=== PATIENT | female | born 1975 | race African-American/Black ===

== ENCOUNTER 2023-04-05 09:43 | Emergency (ER) | payer MEDICAID, SELFPAY ==
[2023-04-05 10:18] VITALS: BP 134/84; PULSE 77; RESP 16; TEMP 36.5; O2SAT 97; BMI 36.0
--- NOTE | 2023-04-05 11:04 | ED.BURNSMOKE ---
HPI - Burn/Smoke Inhalation General Chief complaint: Burn/Smoke Inhalation Stated complaint: Burn on back from yesterday Time Seen by Provider: 04/05/23 10:54 History of Present Illness HPI Narrative: This 47-year-old female is from [place] and does not speak much Monegasque. Her son is present with her and is translating. She comes in with blisters on her upper back as she was using very hot water to fix her hair yesterday. She has some 2nd degree marcano in her upper back due to this injury. She is otherwise in good health. Related Data Home Medications Medication Instructions Recorded Confirmed amlodipine 10 mg tablet 10 mg PO DAILY 02/23/23 04/05/23 metoprolol succinate 100 mg 100 mg PO DAILY 02/23/23 04/05/23 tablet,extended release 24 hr Previous Rx's Medication Instructions Recorded ketorolac 10 mg tablet 10 mg PO Q8H 5 days #15 tabs 04/05/23 Allergies Allergy/AdvReac Type Severity Reaction Status Date / Time No Known Drug Allergies Allergy Verified 04/05/23 10:18 Review of Systems Status of ROS: Reports: 10 or more systems reviewed and unremarkable except as noted in History and below Narrative: The patient states through certified court/medical interpreter that she is otherwise in good health. [facility] Medical History (Updated 04/05/23 @ 11:11 by Rolan Coleman MD) Sleep apnea ?G47.30 - Sleep apnea, unspecified (ICD-10) Hypertension ?I10 - Essential (primary) hypertension (ICD-10) Polio ?A80.9 - Acute poliomyelitis, unspecified (ICD-10) Non-insulin dependent diabetes mellitus Surgical History (Updated 02/23/23 @ 15:25 by Karina Fung ~ [facility], [facility]) H/O right cataract extraction ?Z98.41 - Cataract extraction status, right eye (ICD-10) Social History (Updated 02/23/23 @ 15:25 by Karina Fung ~ [facility], [facility]) Narrative: from [place], multiple motor deficits since age 3 daughter-Albinor Smoking Status: Never smoker Do you use any of these nicotine containing products: None Second hand tobacco smoke exposure: No How often do you have a drink containing alcohol: never AUDIT-C Alcohol total score: 0 Non-prescribed substance use: denies use service: No Exam Narrative: Exam Narrative: Constitutional: Well-developed, well-nourished, no acute distress. HEENT: Normocephalic, atraumatic. Neck: Normal range of motion. Nontender. Supple. Heart: Regular. No murmurs. Normal rate. Intact distal pulses. Lungs: Clear to auscultation. No chest discomfort. No wheezes, rhonchi, or rales. Abdomen: Normal bowel sounds. Nontender. No rebound tenderness. Genitalia: Deferred. Back: No midline tenderness. Normal range of motion. Extremities: Normal range of motion. No injury. Skin: Area of injury to the upper back just below the neck involving less than 1% of total body surface area. These are 2nd degree marcano with 1 blister that has ruptured. Neurologic: No altered sensation. No weakness. Alert and oriented. Psychiatric: No suicidality. No anxiety or depression. No insomnia. Nursing notes and vitals signs are reviewed. Const: Vital Signs, click to edit/add: Vital Signs - 24 hr 04/05/23 10:18 Temperature 97.7 F Pulse Rate [Pulse Oximeter] 77 Respiratory Rate 16 [facility] 134/84 Pulse Oximetry 97 Oxygen Delivery Me thod Room Air Course Vital Signs Vital signs: Initial Vital Signs Temperature 97.7 F 04/05/23 10:18 Temperature Source Temporal Artery Scan 04/05/23 10:18 Pulse Rate 77 04/05/23 10:18 Pulse Rhythm Regular 04/05/23 10:18 Pulse Strength 3+ Normal 04/05/23 10:18 Respiratory Rate 16 04/05/23 10:18 Blood Pressure 134/84 04/05/23 10:18 Blood Pressure Mean 100 04/05/23 10:18 Blood Pressure Position Sitting 04/05/23 10:18 Pulse Oximetry 97 04/05/23 10:18 Oxygen Delivery Method Room Air 04/05/23 10:18 Vital Signs Temperature 97.7 F 04/05/23 10:18 Pulse Rate 77 04/05/23 10:18 Respiratory Rate 16 04/05/23 10:18 Blood Pressure 134/84 04/05/23 10:18 Pulse Oximetry 97 04/05/23 10:18 Oxygen Delivery Method Room Air 04/05/23 10:18 Temperature 97.7 F 04/05/23 10:18 Pulse Rate 77 04/05/23 10:18 Respiratory Rate 16 04/05/23 10:18 Blood Pressure 134/84 04/05/23 10:18 Pulse Oximetry 97 04/05/23 10:18 Oxygen Delivery Method Room Air 04/05/23 10:18 MDM - Burn/Smoke Inhalation MDM Narrative Medical decision making narrative: This patient comes in with hot liquid 2nd degree marcano to her upper back just below her neck. This occurred when fixing her hair using hot water. She has 3 or 4 blisters and 1 of them has drained. There is no sign of infection or other complication. The patient received antibiotic ointment over the wound followed by and nonstick dressing. A prescription for Toradol as provided. Instructions regarding wound care were given. Discharge Plan Discharge Clinical Impression: Second degree burn of back Patient Disposition: Home w/ Parent or Adult Condition: Unchanged Additional Instructions: Keep wound covered for a couple days. Use medication as needed and directed for pain relief. Apply cold compress to the area for additional pain relief as needed. Prescriptions: New ketorolac 10 mg tablet 10 mg PO Q8H 5 Days Qty: 15 0RF No Action amlodipine 10 mg tablet 10 mg PO DAILY metoprolol succinate 100 mg tablet extended release 24 hr 100 mg PO DAILY Follow Up/Referrals: Rola Schmidt MD [Primary Care Provider] - Stand Alone Forms: [employer] Info Instructions Radames/Norma Nines Burn Citation [email or web address]
== END 2023-04-05 11:30 | disposition home or self-care (01) ==
LOC: ED 11:19
PROVIDERS: Emergency Provider Emergency Medicine Emergency Medical Services; PCP Family Medicine
DX: T21.23XA Burn of second degree of upper back, initial encounter (principal); X12.XXXA Contact with other hot fluids, initial encounter
CPT/HCPCS: 99283; 99284

== ENCOUNTER 2023-11-18 19:52 | Emergency (ER) | payer MEDICAID, SELFPAY ==
[2023-11-18 19:55] VITALS: BP 144/85; PULSE 92; RESP 18; TEMP 36.8; O2SAT 98; BMI 34.1
--- NOTE | 2023-11-18 20:04 | ED_ITS ---
HPI - General Adult General Time Seen by Provider: 20:04 Date Seen: 11/18/23 Chief complaint: Ear/Nose/Throat Problem Stated complaint: throat pain Time Seen by Provider: 11/18/23 20:04 Source: patient, family, RN notes reviewed and old records reviewed Mode of arrival: ambulatory Limitations: no limitations History of Present Illness HPI narrative: The patient is a very pleasant 47-year-old female originally from [place] whose daughter helps interpret for us who complains of sore throat. Patient had the onset of a sore throat 4 days ago and the follow-up day and associated headache and fever. She states the headache and fever were improved yesterday but she still has ongoing sore throat. This does appear to be both sides of the throat and not unilateral. Her daughter states she had Mucinex with Tylenol early this morning. No further medications today except for her blood pressure medicine. She has not been vomiting and has been able to keep down T. She is not having a hard time breathing. She does agree that she has had some congestion with an ongoing cough that hurts her throat as well. Her daughter is ill with similar- type illness. Related Data Home Medications Medication Instructions Recorded Confirmed amlodipine 10 mg tablet 10 mg PO DAILY 02/23/23 11/18/23 Previous Rx's Medication Instructions Recorded ketorolac 10 mg tablet 10 mg PO Q8H 5 days #15 tabs 04/05/23 Allergies Allergy/AdvReac Type Severity Reaction Status Date / Time No Known Drug Allergies Allergy Verified 11/18/23 21:21 Review of Systems Status of ROS: Reports: 10 or more systems reviewed and unremarkable except as noted in History and below Const: Reports: fever, chills and fatigue ENMT: Reports: throat pain, difficulty swallowing and nasal congestion; Denies: swelling of lips/tongue Cardio: Denies: chest pain Resp: Reports: cough GI: Reports: difficulty swallowing; Denies: abdominal pain, nausea, vomiting or diarrhea Integ/Breast: Denies: rash Neuro: Reports: headache Endo: Reports: fatigue PFSH PFS Medical History Sleep apnea ?G47.30 - Sleep apnea, unspecified (ICD-10) Hypertension ?I10 - Essential (primary) hypertension (ICD-10) Polio ?A80.9 - Acute poliomyelitis, unspecified (ICD-10) Non-insulin dependent diabetes mellitus Surgical History H/O right cataract extraction ?Z98.41 - Cataract extraction status, right eye (ICD-10) Social History Narrative: from [place], multiple motor deficits since age 3 daughter-Starruar Smoking Status: Never smoker Do you use any of these nicotine containing products: None Second hand tobacco smoke exposure: No How often do you have a drink containing alcohol: never AUDIT-C Alcohol total score: 0 Non-prescribed substance use: denies use service: No Exam Narrative: Exam Narrative: Alert and oriented. Nontoxic in appearance but clearly uncomfortable when she swallows. Handling oral secretions. Her friend were eyes are clear as are 1 TMs. The oral cavity shows moist mucous membranes. No trismus is noted. Tract difficult to see posterior oropharynx although I think this is normal anatomy for her. Neck is supple. No significant lymphadenopathy although she complains of tenderness. Heart with a regular rate and rhythm and lungs are clear bilaterally. Abdomen soft nontender. Moving all extremities. Const: Vital Signs, click to edit/add: Vital Signs - 24 hr 11/18/23 19:55 Temperature 98.3 F Pulse Rate [Right Pulse Oximeter] 92 Respiratory Rate 18 Blood Pressure [Ri ght Upper Arm] 144/85 H Pulse Oximetry 98 Oxygen Delivery Me thod Room Air Documenting provider has reviewed patient's vital signs: yes Course Course ED Course: At this time differential diagnosis includes but is not limited to strep pharyngitis, COVID, influenza, RSV, peritonsillar abscess, tonsillitis. Will obtain swabs. Patient will receive ibuprofen 600 mg p.o. at this time. Reevaluation(s) Reevaluation #1: Patient notes that she seems to be a feeling somewhat better after the ibuprofen as well as fluids. Vital Signs Vital signs: Initial Vital Signs Temperature 98.3 F 11/18/23 19:55 Temperature Source Temporal Artery Scan 11/18/23 19:55 Pulse Rate 92 11/18/23 19:55 Respiratory Rate 18 11/18/23 19:55 Blood Pressure 144/85 H 11/18/23 19:55 Blood Pressure Mean 104 11/18/23 19:55 Blood Pressure Position Sitting 11/18/23 19:55 Pulse Oximetry 98 11/18/23 19:55 Oxygen Delivery Method Room Air 11/18/23 19:55 Vital Signs Temperature 98.3 F 11/18/23 19:55 Pulse Rate 92 11/18/23 19:55 Respiratory Rate 18 11/18/23 19:55 Blood Pressure 144/85 H 11/18/23 19:55 Pulse Oximetry 98 11/18/23 19:55 Oxygen Delivery Method Room Air 11/18/23 19:55 Temperature 98.3 F 11/18/23 19:55 Pulse Rate 92 11/18/23 19:55 Respiratory Rate 18 11/18/23 19:55 Blood Pressure 144/85 H 11/18/23 19:55 Pulse Oximetry 98 11/18/23 19:55 Oxygen Delivery Method Room Air 11/18/23 19:55 Medications Administered Medications: Discontinued Medications Generic Name Dose Route Start Last Admin Trade Name Freq PRN Reason Stop Dose Admin Sodium Chloride 1,000 mls @ 1,000 mls/hr 11/18/23 20:57 11/18/23 21:37 0.9 % Sodium Chloride 1000 Ml IV 11/18/23 21:56 1,000 mls/hr .Q1H EMILY Administration Ibuprofen 600 mg 11/18/23 20:12 11/18/23 21:19 Ibuprofen 200 Mg Tablet PO 11/18/23 20:13 600 mg ONCE ONE Administration Medical Decision Making MDM Narrative Medical decision making narrative: 1. Tonsillitis-patient has tested negative for strep as well as RSV/COVID/influenza. Because of continued complaints of discomfort and patient stating that she was unable to swallow as well as challenging anatomy for posterior pharynx visualization I did opt to do CT and patient has no evidence of airway obstruction but does show bilateral palatine tonsillitis. I do explain to the patient that this is viral in nature and that antibiotics do not help. I did explain that there is no evidence of an abscess to drain at this time. Currently today is day 4 of symptoms and thus I would expect improvement over the next 48 hours. Patient did test negative for mono as well. Symptomatic cares to include soft foods cold or warm fluids depending on which feels better for the patient and finally ibuprofen 400-600 mg every 8 hours as needed. Patient did receive a dose of this medication tonight. For pain not relieved by ibuprofen patient may use [place] sparingly. Instructed daughter that there is Tylenol in this medication and therefore she should not use any Tylenol containing medications. 2. URI-patient has tested negative for RSV/COVID/influenza. Initially this illness appear to be in granddaughter who is a school age child. Mother has had this and now her mother. Reassurance at this time. Patient does not appear septic. They initially described some coughing up of blood early in this illness but this has now dissipated lung sounds are clear bilaterally. 3. Disposition-home at this time. Likely improving over the next 48 hours. Return to the emergency room or seek medical attention for worsening symptoms. Medical Records Medical records reviewed: Yes I reviewed the patient's medical records Lab Data Lab results reviewed: Yes I reviewed the patient's lab results Labs: Lab Results 11/18/23 11/18/23 11/18/23 Range/Units 20:00 21:11 21:11 WBC 6.00 (4.50-11.00) K/uL RBC 4.71 (4.00-5.20) m/uL Hgb 12.1 (12.0-16.0) gm/dL Hct 39.3 (33.0-51.0) % MCV 83 (80-100) fL MCH 26 (26-34) pg MCHC 31 L (32-36) gm/dL RDW Coeff of Parth 13.0 (11.5-15.5) % Plt Count 193 (140-440) K/uL Neut % (Auto) 58.3 (42.0-72.0) % Lymph % (Auto) 31.3 (20-44) % [place] % (Auto) 8.3 (0.0-11.0) % Eos % (Auto) 1.5 (0.0-7.0) % Baso % (Auto) 0.3 (0.0-3.0) % Neut # (Auto) 3.49 (1.7-7.0) K/uL Lymph # (Auto) 1.88 (0.90-2.90) K/uL [place] # (Auto) 0.50 (0.00-0.90) K/UL Eos # (Auto) 0.09 (0.00-0.50) K/uL Baso # (Auto) 0.02 (0.00-0.30) K/uL Abs Immat Gran (auto) 0.02 (0.00-0.30) K/uL Imm/Tot Granulo (auto) 0.3 % Sodium 140 (135-149) mmol/L Potassium 3.4 L (3.6-5.1) mmol/L Chloride 103 (96-114) mmol/L Carbon Dioxide 30 (20-32) mmol/L Anion Gap 7 (7-15) mEq/L BUN 24 (5-24) mg/dL Creatinine 0.8 (0.5-1.5) mg/dL Estimated Creat Clear 76.54 Estimated GFR 90 ml/min Glucose 114 (60-115) mg/dL Calcium 9.7 (8.4-10.6) mg/dL Total Bilirubin 0.4 (0.1-1.5) mg/dL AST 34 (12-35) U/L ALT 39 H (4-35) U/L Alkaline Phosphatase 92 (40-150) U/L C-Reactive Protein Cancelled 5.4 H Total Protein 7.9 (6.0-8.3) g/dL Albumin 4.2 (3.3-5.0) g/dL SARS-CoV-2 (PCR) Negative SARS-CoV-2 (Negative) Monoscreen Negative (Negative) Influenza Type A (PCR) Negative PCR FLU A (Negative) Influenza Type B (PCR) Negative PCR FLU B (Negative) RSV (PCR) Negative PCR RSV (Negative) Group A Strep DNA NOT DETECTED (Not Detectd) Imaging Data Soft tissue neck CT: Attestation: I have reviewed the pertinent imaging results. Radiologist's impression: Symmetric prominence and enhancement the palatine tonsils. No discrete or rim enhancing fluid collection. No pathologically enlarged cervical lymph nodes. Normal parotid and submandibular glands. Unremarkable thyroid. The lung apices are clear. The major vascular structures are normal in appearance. No suspicious osseous lesion is identified. IMPRESSION: 1. Symmetric prominence and enhancement of the palatine tonsils suggestive acute tonsillitis. 2. No discrete or rim enhancing fluid collection. 3. No pathologically enlarged cervical lymph nodes. Discharge Plan Discharge Clinical Impression: Acute viral tonsillitis Patient Disposition: Home, Self-Care Condition: Improved Additional Instructions: You may continue ibuprofen 400-600 mg every 8 hours as needed for discomfort. Ensure that you are pushing fluids, not just water. You want to take other fluids in such as Powerade Gatorade or juice. Recommend soft foods food at this time For discomfort not relieved by ibuprofen you may use the medication called [place] (also known as Vicodin or hydrocodone) sparingly. This does contain a narcotic as well as Tylenol. You want to start a stool softener as this will make you constipated. Do not take this medication with other sleep medicines or sedating medications. Return to the emergency room for worsening symptoms and as needed. You should be improving over the next 24-48 hours. Prescriptions: No Action amlodipine 10 mg tablet 10 mg PO DAILY ketorolac 10 mg tablet 10 mg PO Q8H 5 Days Qty: 15 0RF Follow Up/Referrals: Rola Schmidt MD [Primary Care Provider] - Stand Alone Forms: [facility] Info Instructions
[2023-11-18 20:39] LABS: Strep A DNA Probe* NOT DETECTED (Not Detectd)
[2023-11-18 20:51] LABS: PCR FLU A Negative PCR FLU A (Negative); PCR FLU B Negative PCR FLU B (Negative); PCR RSV Negative PCR RSV (Negative); SARS PCR* Negative SARS-CoV-2 (Negative)
--- NOTE | 2023-11-18 20:57 | CRLHL7_ITS ---
For Patients: As a result of the Century Cures Act, medical imaging exams and procedure reports are released immediately into your electronic medical record. You may view this report before your referring provider. If you have questions, please contact your health care provider. INDICATION: Sore throat, difficulty swallowing. TECHNIQUE: CT of the neck from the skull base to the thoracic inlet following administration of 100 cc iodinated intravenous contrast. COMPARISON: None available. FINDINGS: Symmetric prominence and enhancement the palatine tonsils. No discrete or rim enhancing fluid collection. No pathologically enlarged cervical lymph nodes. Normal parotid and submandibular glands. Unremarkable thyroid. The lung apices are clear. The major vascular structures are normal in appearance. No suspicious osseous lesion is identified. IMPRESSION: 1. Symmetric prominence and enhancement of the palatine tonsils suggestive acute tonsillitis. 2. No discrete or rim enhancing fluid collection. 3. No pathologically enlarged cervical lymph nodes. Please note that all CT scans at this facility use dose modulation, iterative reconstruction, and/or weight-based dosing when appropriate to reduce radiation dose to as low as reasonably achievable. Dictated by Marco Lau MD @ 11/18/2023 9:52:17 PM (Electronically Signed)
[2023-11-18] MEDS: IBUPROFEN 200 MG TABLET 600 MG PO (21:19)
[2023-11-18 21:21] LABS: Basophils Absolute Auto 0.02 K/uL (0.00-0.30); Basophils Percent Auto 0.3 % (0.0-3.0); Eosinophils Absolute Auto 0.09 K/uL (0.00-0.50); Eosinophils Percent Auto 1.5 % (0.0-7.0); Hematocrit 39.3 % (33.0-51.0); Hemoglobin* 12.1 gm/dL (12.0-16.0); Immature Granulocytes Abs Auto 0.02 K/uL (0.00-0.30); Immature Granulocytes Pct Auto 0.3 %; Lymphocytes Absolute Auto 1.88 K/uL (0.90-2.90); Lymphocytes Percent Auto 31.3 % (20-44); Mean Corpuscular HGB Conc 31 gm/dL (32-36); Mean Corpuscular Hemoglobin 26 pg (26-34); Mean Corpuscular Volume 83 fL (80-100); Monocytes Percent Auto 8.3 % (0.0-11.0); Neutrophils Absolute Auto 3.49 K/uL (1.7-7.0); Neutrophils Percent Auto 58.3 % (42.0-72.0); Platelet Count* 193 K/uL (140-440); Red Blood Count 4.71 m/uL (4.00-5.20)
[2023-11-18 21:26] LABS: Slide Review Reflex No
[2023-11-18 21:31] LABS: Mono Screen* Negative (Negative)
[2023-11-18 21:34] LABS: Albumin* 4.2 g/dL (3.3-5.0); Chloride* 103 mmol/L (96-114); Sodium* 140 mmol/L (135-149)
[2023-11-18 21:35] LABS: Potassium* 3.4 mmol/L (3.6-5.1)
[2023-11-18 21:37] LABS: Anion Gap 7 mEq/L (7-15); Aspartate Amino Transferase* 34 U/L (12-35); Bilirubin Total* 0.4 mg/dL (0.1-1.5); Carbon Dioxide* 30 mmol/L (20-32); Creatinine* 0.8 mg/dL (0.5-1.5); Est. Creatinine Clearance* 76.54; Estimated Glomerular Filt Rate 90 ml/min
[2023-11-18] MEDS: 0.9 % SODIUM CHLORIDE 1000 ml 1,000 ML IV (21:37)
[2023-11-18 21:38] LABS: Alanine Aminotransferase* 39 U/L (4-35); Alkaline Phosphatase* 92 U/L (40-150); Blood Urea Nitrogen* 24 mg/dL (5-24); Calcium* 9.7 mg/dL (8.4-10.6); Glucose* 114 mg/dL (60-115); Total Protein* 7.9 g/dL (6.0-8.3)
[2023-11-18 21:40] LABS: C Reactive Protein* 5.4 mg/dL (0.5-1.0)
== END 2023-11-18 22:38 | disposition home or self-care (01) ==
PROVIDERS: Emergency Provider Family Medicine; PCP Family Medicine
DX: J03.90 Acute tonsillitis, unspecified (principal)
CPT/HCPCS: 36415; 70491; 80053; 85025; 86140; 86308; 87631; 87651; 99283; 99284; A9270; J7030; Q9967